=== PATIENT | male | born 1970 | race Two or more races ===

== ENCOUNTER 2022-03-24 03:55 | Emergency (ER) | payer OTHER ==
[~2022-03-24] VITALS: Ht 190.5 cm; Wt 128.8 kg
--- NOTE | 2022-03-24 04:05 | NUR ---
PATIENT BIBRA 80 FROM HOME C/O SOB, PT ON BIPAP. PATIENT TAKEN TO ER BED 09. PATIENT IS A/O X 4, TAKEN OFF BIPAP PLACED ON 4L N/C 95%. PATIENT PLACED ON CARIDAC MONITOR AND POX.
[2022-03-24] MEDS ORDERED: FUROSEMIDE 40 MG/4 ML VIAL ONE (04:10)
[2022-03-24] MEDS: FUROSEMIDE 40 MG/4 ML VIAL IV ONE (04:13)
--- NOTE | 2022-03-24 04:16 | NUR ---
BLOOD WORK AND COVID SWAB COLLECTED AND SENT TO LAB
[2022-03-24 05:04] LABS: BASOPHILS % (AUTO) 0.4 % (0.0-2.0); EOSINOPHILS % (AUTO) 6.3 % (0.0-6.0); HEMATOCRIT 42 % (39-51); HEMOGLOBIN 14.1 g/dL (13.5-17.5); LYMPHOCYTES % (AUTO) 38.9 % (20.0-44.0); MEAN CORPUSCULAR HGB CONC 34 g/dl (31.0-36.0); MEAN CORPUSCULAR VOLUME 89 fL (80-96); MONOCYTES # (AUTO) 0.5 K/uL (0.1-1.30); MONOCYTES % (AUTO) 9.8 % (2.0-12.0); NEUTROPHILS # (AUTO) 2.3 K/uL (1.8-8.9); NEUTROPHILS % (AUTO) 44.6 % (43.0-81.0); PLATELET COUNT (AUTO) 201 K/uL (150-450); RED BLOOD CELL COUNT(AUTO) 4.66 MIL/uL (4.5-6.0); WHITE BLOOD COUNT (AUTO) 5.1 K/uL (4.3-11.0)
[2022-03-24 05:24] LABS: CALCIUM, SERUM 8.9 mg/dL (8.5-10.1); CARBON DIOXIDE 30 mmol/L (21-32); CHLORIDE 105 mmol/L (98-107); CREATININE 1.1 mg/dL (0.6-1.3); GLUCOSE 125 mg/dL (74-106); POTASSIUM 3.7 mmol/L (3.5-5.1); SODIUM SERUM 141 mmol/L (136-145); UREA NITROGEN, BLOOD 10 mg/dL (7-18)
[2022-03-24 05:29] LABS: ALANINE AMINOTRANSFERASE 26 U/L (12-78); ALBUMIN 3.7 g/dL (3.4-5.0); ALKALINE PHOSPHATASE 76 U/L (46-116); ASPARTATE AMINOTRANSFERASE 17 U/L (15-37); BILIRUBIN,DIRECT 0.1 mg/dL (0.0-0.2); BILIRUBIN,TOTAL 0.4 mg/dL (0.2-1.0); TOTAL PROTEIN, SERUM 7.8 g/dL (6.4-8.2)
--- NOTE | 2022-03-24 06:11 | NUR ---
PATIENT IS MEDICALLY STABLE FOR D/C PER MD. SATTING 100% ON R/A . DENIED SOB OR OTHER DISTRESS
--- NOTE | 2022-03-24 06:12 | NUR ---
IV removed. Catheter intact and site benign. Pressure and 4x4 applied to site. No bleeding noted.Patient discharged to home in stable condition. Written and verbal after care instructions given. Patient verbalizes understanding of instruction.
[2022-03-24 06:16] VITALS: BP 141/84
== END 2022-03-24 06:17 | disposition home or self-care (01) ==
LOC: ER 03:57
DX: I11.0 Hypertensive heart disease with heart failure (principal); I50.9 Heart failure, unspecified; Z20.822 Contact with and (suspected) exposure to COVID-19; R00.0 Tachycardia, unspecified
CPT/HCPCS: 99285; 96374; 71045; 87426; 93005; 85025; 80048; 80076; 36415; 84484 ×2; 83880; J1940; C9803

== ENCOUNTER 2022-06-29 23:35 | Emergency (ER) | payer OTHER ==
[~2022-06-29] VITALS: Ht 190.5 cm; Wt 122.5 kg
--- NOTE | 2022-06-29 23:55 | NUR ---
BIBSELF C/O SOB X1 HR. PROJECTION PRINTER TOOK LASIX 40MG. HX CHF. PATIENT IS AAOX4. ABLE TO MAKE NEEDS KNOWN. VITALS CHECKED.
--- NOTE | 2022-06-30 00:25 | NUR ---
EKG DONE AT BEDSIDE
--- NOTE | 2022-06-30 00:30 | NUR ---
CXR DONE AT BEDSIDE
[2022-06-30 02:00] LABS: CALCIUM, SERUM 8.9 mg/dL (8.5-10.1); CARBON DIOXIDE 28 mmol/L (21-32); CHLORIDE 105 mmol/L (98-107); CREATININE 1.1 mg/dL (0.6-1.3); GLUCOSE 144 mg/dL (74-106); POTASSIUM 3.6 mmol/L (3.5-5.1); SODIUM SERUM 139 mmol/L (136-145); UREA NITROGEN, BLOOD 12 mg/dL (7-18)
[2022-06-30 02:02] LABS: BASOPHILS % (AUTO) 0.7 % (0.0-2.0); EOSINOPHILS % (AUTO) 6.2 % (0.0-6.0); HEMATOCRIT 40 % (39-51); HEMOGLOBIN 13.2 g/dL (13.5-17.5); LYMPHOCYTES % (AUTO) 41.7 % (20.0-44.0); MEAN CORPUSCULAR HGB CONC 33 g/dl (31.0-36.0); MEAN CORPUSCULAR VOLUME 90 fL (80-96); MONOCYTES # (AUTO) 0.4 K/uL (0.1-1.30); MONOCYTES % (AUTO) 8.8 % (2.0-12.0); NEUTROPHILS % (AUTO) 42.6 % (43.0-81.0); PLATELET COUNT (AUTO) 207 K/uL (150-450); RED BLOOD CELL COUNT(AUTO) 4.41 MIL/uL (4.5-6.0); WHITE BLOOD COUNT (AUTO) 4.7 K/uL (4.3-11.0)
[2022-06-30 02:12] LABS: ALANINE AMINOTRANSFERASE 21 U/L (12-78); ALBUMIN 3.3 g/dL (3.4-5.0); ALKALINE PHOSPHATASE 67 U/L (46-116); ASPARTATE AMINOTRANSFERASE 18 U/L (15-37); BILIRUBIN,DIRECT 0.1 mg/dL (0.0-0.2); BILIRUBIN,TOTAL 0.3 mg/dL (0.2-1.0); TOTAL PROTEIN, SERUM 6.9 g/dL (6.4-8.2)
--- NOTE | 2022-06-30 02:17 | NUR ---
Patient discharged to home in stable condition. Written and verbal after care instructions given. Patient verbalizes understanding of instruction.
[2022-06-30 02:32] VITALS: BP 116/83
== END 2022-06-30 02:32 | disposition home or self-care (01) ==
LOC: ER 23:39
DX: R06.02 Shortness of breath (principal); I11.0 Hypertensive heart disease with heart failure; I50.9 Heart failure, unspecified
CPT/HCPCS: 36415; 71045-TC; 80048-TC; 80076-TC; 83880; 84484-TC; 85025-TC